=== PATIENT | female | born 1960 | race Caucasian/White ===

== ENCOUNTER 2021-02-14 11:08 | Emergency (ER) | payer OTHER, BC ==
[2021-02-14 11:25] VITALS: BP 104/69; PULSE 70
--- NOTE | 2021-02-14 11:48 | EDM.PDOC ---
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 A very small amount of blood was expelled from the small puncture wound, she washed her hand thoroughly. She is following protocols for needle sticks through the hospital. She does not want any prophylaxis. Onset: Sudden Duration: Hour(s): (Within the last hour) Location: Reports: Upper Extremity, Left Quality: Reports: Other (Patient is asymptomatic) Associated Symptoms: Reports: No Other Symptoms - Related Data Allergies Allergy/AdvReac Type Severity Reaction Status Date / Time cephalexin [Cephalexin] Allergy Edema Verified 02/14/21 11:18 morphine Allergy Itching Verified 02/14/21 11:18 nickel Allergy Rash Verified 02/14/21 11:18 Home Meds: Home Meds PARoxetine HCl [Paxil] 40 mg PO DAILY 11/14/15 [History] Folic Acid/Multivit-Min/Lutein [Multi-Vitamin Gummies] 2 tab PO DAILY 04/19/19 [History] Bacillus Coagulans [Probiotic] 1 each PO DAILY 07/30/20 [History] Sennosides [Senokot] 8.6 mg PO DAILY 07/30/20 [History] Cranberry Conc/Ascorbic Acid [Cranberry 12,600 mg Softgel] 2 each PO DAILY 08/03/20 [History] [place]-3/DHA/Epa/Fish Oil [[place]-3 Fish Oil 1,000 MG Sfgl] 1,000 mg PO DAILY 08/03/20 [History] Past Medical History HEENT History: Reports: Impaired Vision Cardiovascular History: Reports: Other (See Below) Other Cardiovascular History: right bundle branch block Respiratory History: Reports: Sleep Apnea Gastrointestinal History: Reports: Colon Polyp Genitourinary History: Reports: None [employer] History: Reports: Musculoskeletal History: Reports: Back Pain, Chronic, Osteoarthritis, Other (See Below) Other Musculoskeletal History: bilateral hip pain Neurological History: Reports: Concussion, Migraines Psychiatric History: Reports: Anxiety, Depression Endocrine/Metabolic History: Reports: Obesity/BMI 30+, Osteopenia Hematologic History: Reports: None Immunologic History: Reports: None Oncologic (Cancer) History: Reports: None Dermatologic History: Reports: None - Infectious Disease History Infectious Disease History: Reports: Chicken Pox, Mumps - Past Surgical History Head Surgeries/Procedures: Reports: None GI Surgical History: Reports: Colonoscopy Female Surgical History: Reports: Breast Biopsy, Cervical Cryotherapy, H ysterectomy, Salpingo-Oophorectomy Endocrine Surgical History: Reports: None Neurological Surgical History: Reports: None Musculoskeletal Surgical History: Reports: Carpal Tunnel, Other (See Below) Other Musculoskeletal Surgeries/Procedures:: lt toe screw Dermatological Surgical History: Reports: None Social & Family History - Caffeine Use Caffeine Use: Reports: Coffee ED ROS GENERAL - Review of Systems Review Of Systems: See Below Constitutional: Denies: Fever, Chills Respiratory: Reports: No Symptoms GI/Abdominal: Reports: No Symptoms Skin: Reports: Other (Small puncture wound in the left hypothenar area of the palm, no visible signs of injury) Neurological: Reports: No Symptoms ED EXAM, GENERAL - Physical Exam Exam: See Below Exam Limited By: No Limitations General Appearance: Alert, No Apparent Distress Respiratory/Chest: No Respiratory Distress Extremities: Other (Exam is otherwise limited to the left hand. Close examination of the puncture area shows no visible signs of injury, no bruising bleeding or swelling) Neurological: Alert, Oriented Course - Vital Signs Last Recorded V/S: Last Vital Signs Temp 97.6 F 02/14/21 11:29 Pulse 70 02/14/21 11:29 Resp 16 02/14/21 11:29 BP 104/69 02/14/21 11:29 Pulse Ox 98 02/14/21 11:29 - Re-Assessments/Exams Free Text/Narrative Re-Assessment/Exam: 02/14/21 11:46 Patient is declining any prophylactic medications at this time pending results from the patient's labs. She can watch for infection and keep the wound clean while healing. Departure - Departure Time of Disposition: 11:52 Disposition: Home, Self-Care 01 Clinical Impression: Needle stick injury - Discharge Information Instructions: Needlestick and Sharps Injury, [id number] Referrals: PCP,None [Primary Care Provider] - Forms: ED Department Discharge Care Plan Goals: Keep the puncture site clean while healing, monitor results from the patient and your own labs for any further treatment options. Sepsis Event Note (ED) - Evaluation Sepsis Screening Result: No Definite Risk - Focused Exam Vital Signs: Vital Signs Temp Pulse Resp BP Pulse Ox 02/14/21 11:29 97.6 F 70 16 104/69 98 02/14/21 11:20 97.6 F 70 16 104/69 98
== END 2021-02-14 11:52 | disposition home or self-care (01) ==
LOC: JP.ED 11:08
DX: S61.432A Puncture wound without foreign body of left hand, initial encounter (principal); E66.9 Obesity, unspecified; Z68.31 Body mass index [BMI] 31.0-31.9, adult; Z88.6 Allergy status to analgesic agent; Z88.1 Allergy status to other antibiotic agents; Z91.048 Other nonmedicinal substance allergy status; W27.3XXA Contact with needle (sewing), initial encounter
CPT/HCPCS: 99282